=== PATIENT | female | born 1990 | race Hispanic/Latino ===

== ENCOUNTER 2019-12-10 15:12 | Observation (INO) ==
[2019-12-10] MEDS ORDERED: hydrALAZINE 20 MG/ML VIAL SLOW IVP PRN (15:40)
[2019-12-10] MEDS ORDERED: Lactated Ringer's 1,000 ML IV SCH ×2 (16:30)
[2019-12-10] MEDS ORDERED: Betamet Acet/Betamet Na Ph 30 MG/5 ML VIAL IM SCH (16:45)
[2019-12-10 17:01] LABS: Amnisure Internal Control QC ACCEPTABLE (ACCEPTABLE); Amnisure Test No Membranes Rupture (No Rupture)
--- NOTE | 2019-12-10 17:53 | ULT ---
BIOPHYSICAL PROFILE: 12/10/19 INDICATIONS: Oligohydramnios. There is a single viable intrauterine . tone: Score 2 breathing: Score 0 movement: Score 2 Amniotic fluid: Score 2 Total score: 6/8 DEMETRA is recorded at 5.8 which does indicate oligohydramnios. Position: Vertex. heart rate: 139 beats per minute. Placenta: Fundal to the right. POS: AGW
--- NOTE | 2019-12-10 18:53 | PDOC.FPROB ---
FMR OB H&P: HPI - History of Present Illness Chief Complaint: Oligohydraminos Indentification: 29 y/o at 35.0 wga by 14.0 wk sono. History of Present Illness: Pt presents to OB triage today after being seen in clinic today for mBPP and NST and DEMETRA was shown to be non reassuring in clinic and patient was sent to the hospital for further evaluation. Upon arrival, patient states that she is doing well at this time. No VB, VD, LOF. Endorses movement. Has not been feeling contractions. Pt also stated that she was not having [place]/vision changes, CP/SOB, N/V/D. 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 - Surgical History Sx History: -none - Social History Social History: -no tobacco, drug, etoh use - Family History Family History: Sister: PCOS Aunt: Leukemia Brother: open heart surgery at age 28 Grandmother: skin cancer FMR OB H&P: ROS - Review of Systems General: denies: fever/chills, fatigue Eyes: denies: vision changes, double vision ENT: denies: nasal congestion, rhinorrhea Cardiovascular: denies: chest pain, palpitation Respiratory: denies: cough, congestion, shortness of breath Gastrointestinal: denies: abdominal pain, indigestion, bloating, diarrhea, constipation Genitourinary (Female): denies: incontinence, dysuria, hematuria, polyuria, hesitancy, vaginal discharge, vaginal pain, vaginal bleeding, contractions, vaginal pressure Musculoskeletal: denies: pain, stiffness Neurologic: denies: numbness, syncope Integumentary: denies: rash Psychological: denies: depression, anxiety FMR OB H&P: Vital Signs - Maternal Vital signs: BP 120/67 HR 88 RR 18 - Heart Tones Baseline: 135 Variability: moderate Acceleration: present Deceleration: absent Category: category 1 [place] contractions every: no ctx seen FMR OB H&P: Physical Exam - Physical Exam General: NAD, awake, alert and oriented HEENT: normocephalic and atraumatic, PERRLA Neck: supple Chest: non-tender to palpation Breast: symmetric Heart: RRR, normal S1/S2, no murmurs/rubs/gallops, pulses present General: CTAB, no respiratory distress, good air movement, no rales/rhonchi, no wheezing, no retractions Abdomen: gravid Musculoskeletal: normal gait and station, FROM in all four extremities Neurological: no tremor, no focal deficit Skin: good tugor, capillary refill <2 seconds Psychiatric: intact recent and remote memory, good judgement and insight, normal mood and affect - Pelvic Exam Vulva: normal hair distribution Cervix: no masses, no lesions, no blood Deviation from normal: some white/green discharge noted. no pooling seen FMR OB H&P: Results - Labs Lab results: Laboratory Results - last 24 hr 12/10/19 16:20 Amnio Swab Test No Membranes Rupture FMR OB H&P: A/P Disposition: 29 y/o at 35.0 wga by 14.0 wk sono ##sIUP presenting with concerning sono findings of low DEMETRA -currently at 35.0 wga KOSTA 01/14/20 -today in clinic had mBPP and NST which showed DEMETRA of 1.5 -maternal labs neg so far -has been followed by MFM due to FGR, latest sono on 12/02 showed Hadlock of 1.7% -FHT: show FHR in 130s-140s, shows moderate variability with no decels -GBS unknown -genetic screening unable to be done d/t financial reasons ## will FGR -aware, see above -has been followed by MFM for this, however due to financial reasons has not been able to see them lately -has been having q4W growths due to this ## with false positive RPR -RPR has been positive titer 1:2 -treponemal abs have been tested for every trimester and these have been negative -pt in monogamous relationship ##A1GDM -aware -being managed and controlled with diet and exercise Plan: pt will be admitted for observation overnight. dose of steroids ordered. GBS obtained. Amnisure obtained. BPP ordered and results pending. H&P has been discussed with Dr. Doty who agrees with assessment and plan.
[2019-12-10] MEDS ORDERED: Promethazine HCl 25 MG/ML VIAL IM PRN (19:32)
[2019-12-10] MEDS ORDERED: Acetaminophen 500 MG TAB PO PRN (19:32)
[2019-12-10] MEDS ORDERED: Ondansetron PF 4 MG/2 ML Vial IVP PRN (19:32)
--- NOTE | 2019-12-10 21:04 | PDOC.LDPN ---
Labor & Delivery Progress Note - Subjective Subjective: comfortable - Objective Vital signs reviewed and normal: yes General: NAD Uterine fundus: non tender Plan: continue plan of care -: 29 y/o at 35.0 wga by 14.0 wk sono admitted obs due to concerning sono findings of low DEMETRA ##sIUP -currently at 35.0 wga KOSTA 01/14/20 -today in clinic had mBPP and NST which showed DEMETRA of 1.5 -maternal labs neg so far -has been followed by MFM due to FGR, latest sono on 12/02 showed Hadlock of 1.7% -Genetic screening unable to be done d/t financial reasons -Received #1 dose steroids at 2200 12/09 -FHT: 130 baseline, moderate variability, no decels -GBS pending -CMV, toxoplasma, HSV, HIV, CBC ordered -Growth US with umbilical artery dopplers pending ## will FGR -aware, see above -has been followed by M for this, however due to financial reasons has not been able to see them lately -has been having q4W growths due to this ## with false positive RPR -RPR has been positive titer 1:2 -treponemal abs have been tested for every trimester and these have been negative -pt in monogamous relationship ##A1GDM -aware -being managed and controlled with diet and exercise Plan: F/u growth US results, continue to monitor Addendum - Attending - Attending Attestation Date/Time: 12/11/19 0704 I personally evaluated the patient and discussed the management with Dr. Perez I agree with the History, Examination, Assessment and Plan documented above with any addition or exceptions noted below. Doing well. EFW improved from prior studies however FL remains restricted. DEMETRA WNLs. Placenta appeared grade 2. S/D ratio in free cord WNL based on GA. FHT cat 1 Reassuring findings. Ok to d/c today. Follow up with PCP. Tsering
[2019-12-10 21:10] LABS: #Eosinphils 0.1 thou/uL (0.0-0.7); #Lymphocytes 2.2 thou/uL (1.20-3.40); #Monocytes 0.5 thou/uL (0.11-0.59); #Neutrophils 6.3 thou/uL (1.40-6.50); %Basophils 0.3 % (0.0-1.0); %Eosinophils 1.4 % (0.0-10.0); %Lymphocytes 23.9 % (21.0-51.0); %Monocytes 5.8 % (0.0-10.0); %Neutrophils 68.7 % (42.0-75.0); Hemoglobin 12.1 g/dL (12.0-16.0); Mean Corpuscular HGB CONC 34.9 g/dL (32.0-36.0); Mean Corpuscular Hemoglobin 31.6 pg (27.0-31.0); Mean Corpuscular Volume 90.4 fL (78.0-98.0); Platelet Count 174 thou/uL (130-400); RBC Distribution Width 12.6 % (11.5-14.5); Red Blood Cell (RBC) Count 3.84 mill/uL (4.20-5.40); White Blood Cell (WBC) Count 9.1 thou/uL (4.8-10.8)
[2019-12-10 21:33] LABS: ALT (SGPT) 16 U/L (8-55); AST (SGOT) 15 U/L (5-34); Albumin 3.3 g/dL (3.5-5.0); Alkaline Phosphatase 176 U/L (40-110); Anion Gap 13 mmol/L (10-20); BUN (Urea Nitrogen) 11 mg/dL (7.0-18.7); Bilirubin, Total 0.2 mg/dL (0.2-1.2); Calc. Creatinine Clearance 138 mL/min (70-130); Calcium 9.2 mg/dL (7.8-10.44); Carbon Dioxide 23 mmol/L (22-29); Chloride 102 mmol/L (98-107); Estimated GFR-MDRD Greater than 90; Globulin 3.4 g/dL (2.4-3.5); Glucose 104 mg/dL (70-105); Potassium 3.5 mmol/L (3.5-5.1); Protein, Total 6.7 g/dL (6.0-8.3); Sodium 134 mmol/L (136-145)
[2019-12-10 21:49] LABS: Syphilis Antibody Nonreactive (Nonreactive); Syphilis Antibody Index 0.04 S/CO (<1.00 Non-Reactive)
--- NOTE | 2019-12-10 22:39 | PDOC.LDPN ---
Labor & Delivery Progress Note - Subjective Subjective: comfortable - Objective Vital signs reviewed and normal: yes General: NAD Uterine fundus: non tender Plan: continue plan of care -: 29 y/o at 35.0 wga by 14.0 wk sono admitted obs due to concerning sono findings of low DEMETRA ##sIUP -currently at 35.0 wga KOSTA 01/14/20 -today in clinic had mBPP and NST which showed DEMETRA of 1.5 -has been followed by MFM due to FGR, latest sono on 12/02 showed Hadlock of 1.7% -Genetic screening unable to be done d/t financial reasons -Received #1 dose steroids at 2200 12/09 -FHT: 130 baseline, moderate variability, no decels -GBS pending -HIV negative. CMV, toxoplasma, HSV pending -Growth US with umbilical artery dopplers pending ## will FGR -aware, see above -has been followed by MFM for this, however due to financial reasons has not been able to see them lately -has been having q4W growths due to this ## with false positive RPR -RPR has been positive titer 1:2 -treponemal abs have been tested for every trimester and these have been negative -pt in monogamous relationship ##A1GDM -aware -being managed and controlled with diet and exercise Plan: F/u growth US results, monitor overnight with likely dc in am Addendum - Attending - Attending Attestation Date/Time: 12/10/19 4732 I personally evaluated the patient and discussed the management with resident team I agree with the History, Examination, Assessment and Plan documented above with any addition or exceptions noted below. Reassuring status. Awaiting growth scan. Tsering
[2019-12-11 01:02] LABS: HIV (1/2) Antibody/Antigen Non-Reactive (NonReactive); HIV 1/2 INDEX 0.07 S/CO (<1.00); Hep B Surf Ag Non-Reactive S/CO (NonReactive)
[2019-12-11] MEDS ORDERED: diphenhydrAMINE 25 MG CAP PO SCH (02:00)
[2019-12-11 07:43] VITALS: TEMP 98.3
--- NOTE | 2019-12-11 08:09 | ULT ---
PRELIMINARY REPORT/[facility]/EMERGENCY AFTER HOURS PROCEDURE EXAM: US Obstetrical, Complete >14 weeks. CLINICAL HISTORY: Growth, and umbilical doppler TECHNIQUE: Transabdominal imaging of the maternal pelvis and a > 14 week gestation with image documentation. Do ppler images of the umbilical artery COMPARISON: None provided. FINDINGS: FETUS: Estimated gestational age by ultrasound: 34 weeks 2 days Clinical gestational age: 35 weeks 1 day Estimated weight: 2346 grams POSITION: position: Cephalic Placental location: Right uterine body without previa HEART RATE: heart rate: 137 bpm. BIOMETRICS: Biparietal diameter: 8.5 cm corresponding to 34 weeks 2 days Head circumference: 31.66 cm corresponding to 35 weeks 4 days Abdominal circumference: 30.96 cm corresponding to 34 weeks 6 days Femur length 6.3 cm corresponding to 32 weeks 4 days Estimated due date by ultrasound 01/20/2020 LMP: 04/09/2019 Clinical estimated due date: 01/14/2020 AMNIOTIC FLUID: DEMETRA: Qualitatively normal UMBILICAL ARTERIAL DOPPLER Peak systolic, diastolic, and systolic/diastolic values: At the placenta: 60.9, 32.6, 2. Free Loop: 83.3, 53.7, 1. insertion: 97.6, 19.7, 4. All resistive indices are less than 1 Normal umbilical arterial waveforms with preserved diastolic flow (without reversal). IMPRESSION: 1. Normal umbilical arterial waveforms with preserved diastolic flow (without reversal). 2. Concordant dating with the majority of the biometric measurements within normal limits. 3. The femur length below normal limits at the 2nd percentile. 4. Normal morphology of the umbilical arterial waveforms with normal Doppler values at the placental insertion and free Loop; however, there is elevated systolic to diastolic ratio at the insertion of 4.95 (50th percentile is 2.83 by the 30th week gestation). This could represent artifact versus sequela of growth restriction. Recommend close clinical follow-up with ECCLESIASTICAL WORKER and consideration for maternal medicine consultation. ELECTRONICALLY SIGNED BY: Rosales Weeks DO Dec 11, 2019 5:34:08 AM CDT This report is intended for review by the ordering physician only, in accordance of law. If you recei ve this report in error, please call [facility] at [phone]. FINAL REPORT Emergent after hours Limited OB ultrasound with umbilical artery Doppler evaluation HISTORY: Evaluate growth and umbilical Doppler. IMPRESSION: Findings are in agreement with preliminary report by [facility]. Code QA Transcribed Date/Time: 12/11/2019 8:29 AM
[2019-12-11] MEDS ORDERED: FLU VACC QS2020-21(6MOS UP)/PF 60 MCG/0.5 ML SYRINGE IM ONE (09:00)
--- NOTE | 2019-12-11 10:30 | PDOC.OBAPN ---
FMR OB AP PN: Sub - Interval History Hospital Day: 2 Chief Complaint: concern for oligo Indentification: 26 y/o at 35.1 wga by 14.0 wk sono Interval History: Pt doing well. No concerns at this time. No complaints or questions. FMR OB AP PN: Obj - Maternal Vital signs: BP: [123/65] HR: [75] RR: [18] Tmax: [98.3] - Heart Tones Baseline: 135 Variability: moderate Acceleration: present Deceleration: absent Category: category 1 [place] contractions every: none seen on toco FMR OB AP PN: Exam - Physical Exam General: NAD, awake, alert and oriented HEENT: normocephalic and atraumatic, PERRLA, MMM, conjunctiva clear, grossly normal hearing Neck: supple Chest: non-tender to palpation Heart: RRR, normal S1/S2, no murmurs/rubs/gallops, pulses present, no edema General: CTAB, no respiratory distress, good air movement, no rales/rhonchi, no wheezing, no retractions Abdomen: gravid Musculoskeletal: FROM in all four extremities Neurological: no tremor, no focal deficit Skin: no rash Psychiatric: intact recent and remote memory, good judgement and insight, normal mood and affect FMR OB AP PN: Data - Labs Lab results: Laboratory Results - last 24 hr 12/10/19 12/10/19 12/10/19 16:20 21:00 21:00 WBC RBC Hgb Hct MCV MCH MCHC RDW Plt Count MPV Neutrophils % Lymphocytes % Monocytes % Eosinophils % Basophils % Neutrophils # Lymphocytes # Monocytes # Eosinophils # Basophils # Sodium 134 L Potassium 3.5 Chloride 102 Carbon Dioxide 23 Anion Gap 13 BUN 11 Creatinine 0.71 Estimated GFR (MDRD) Greater than 90 Glucose 104 POC Glucose Calcium 9.2 Total Bilirubin 0.2 AST 15 ALT 16 Alkaline Phosphatase 176 H Serum Total Protein 6.7 Albumin 3.3 L Globulin 3.4 Albumin/Globulin Ratio 1.0 L Amnio Swab Test No Membranes Rupture Syphilis IgG/IgM Ab Hep Bs Antigen Non-Reactive HIV 1&2 Antigen & Ab Non-Reactive Blood Type Antibody Screen 12/10/19 12/10/19 12/10/19 21:00 21:00 21:01 WBC 9.1 RBC 3.84 L Hgb 12.1 Hct 34.7 L MCV 90.4 MCH 31.6 H MCHC 34.9 RDW 12.6 Plt Count 174 MPV 11.0 H Neutrophils % 68.7 Lymphocytes % 23.9 Monocytes % 5.8 Eosinophils % 1.4 Basophils % 0.3 Neutrophils # 6.3 Lymphocytes # 2.2 Monocytes # 0.5 Eosinophils # 0.1 Basophils # 0.0 Sodium Potassium Chloride Carbon Dioxide Anion Gap BUN Creatinine Estimated GFR (MDRD) Glucose POC Glucose Calcium Total Bilirubin AST ALT Alkaline Phosphatase Serum Total Protein Albumin Globulin Albumin/Globulin Ratio Amnio Swab Test Syphilis IgG/IgM Ab Nonreactive Hep Bs Antigen HIV 1&2 Antigen & Ab Blood Type O POSITIVE Antibody Screen NEGATIVE 12/10/19 12/10/19 12/11/19 22:00 22:01 07:36 WBC RBC Hgb Hct MCV MCH MCHC RDW Plt Count MPV Neutrophils % Lymphocytes % Monocytes % Eosinophils % Basophils % Neutrophils # Lymphocytes # Monocytes # Eosinophils # Basophils # Sodium Potassium Chloride Carbon Dioxide Anion Gap BUN Creatinine Estimated GFR (MDRD) Glucose POC Glucose 75 143 H Calcium Total Bilirubin AST ALT Alkaline Phosphatase Serum Total Protein Albumin Globulin Albumin/Globulin Ratio Amnio Swab Test Syphilis IgG/IgM Ab Hep Bs Antigen HIV 1&2 Antigen & Ab Blood Type O POSITIVE Antibody Screen FMR OB AP PN: A/P Disposition: 29 y/o at 35.1 wga by 14.0 wk sono who presented to OB triage for concerning findings of oligohydraminos. ##sIUP, high risk -currently at 35.1 wga KOSTA 01/14/20 -FHT: show FHR in 130s-140s, shows moderate variability with no decels and some accels, reassuring -BPP showed DEMETRA of 5.8 cm with score of 6/8, taken off for breathing -preliminary report done of growth and UA doppler study show normal UA waveforms with perserved diastolic flow (without reversal), femur length below normal limits within the second percentile. normal morphology of UA waveforms with elevated systolic to diastolic ratio at the insertion of 4.95 -s/p one dose of steroids @ 2200, will plan for another dose before d/c around noon today - complicated by FGR, is able to see MFM however was lost to follow up. discussed patients case with KAREN this AM and they will see her this afternoon in clinic to reassess with full BPP, growth, and UA doppler studies and we will follow along with them. ##A1GDM -aware -being managed and controlled with diet and exercise -in house glucose this AM was 143, however patient has received steroids ## with false positive RPR -RPR has been positive titer 1:2 -treponemal abs have been tested for every trimester and these have been negative -pt in monogamous relationship Plan: plan today to be discharged home after second dose of steroids. will f/u with M for appointment today at 2:30 PM, we will be following along with this. return precautions given. H&P has been discussed with Dr. Doty who agrees with assessment and plan.
[2019-12-11] MEDS ORDERED: Betamet Acet/Betamet Na Ph 30 MG/5 ML VIAL IM SCH (11:00)
[2019-12-13 07:14] LABS: CMV IgG AB Greater than 10.00 U/mL (0.00-0.59); Toxoplasma IgG AB Less than 3.0 IU/mL (0.0-7.1); Toxoplasma IgM AB Less than 3.0 AU/mL (0.0-7.9)
--- NOTE | 2019-12-13 15:36 | ULT ---
PRELIMINARY REPORT/[facility]/EMERGENCY AFTER HOURS PROCEDURE EXAM: US Obstetrical, Complete >14 weeks. CLINICAL HISTORY: Growth, and umbilical doppler TECHNIQUE: Transabdominal imaging of the maternal pelvis and a > 14 week gestation with image documentation. Do ppler images of the umbilical artery COMPARISON: None provided. FINDINGS: FETUS: Estimated gestational age by ultrasound: 34 weeks 2 days Clinical gestational age: 35 weeks 1 day Estimated weight: 2346 grams POSITION: position: Cephalic Placental location: Right uterine body without previa HEART RATE: heart rate: 137 bpm. BIOMETRICS: Biparietal diameter: 8.5 cm corresponding to 34 weeks 2 days Head circumference: 31.66 cm corresponding to 35 weeks 4 days Abdominal circumference: 30.96 cm corresponding to 34 weeks 6 days Femur length 6.3 cm corresponding to 32 weeks 4 days Estimated due date by ultrasound 01/20/2020 LMP: 04/09/2019 Clinical estimated due date: 01/14/2020 AMNIOTIC FLUID: DEMETRA: Qualitatively normal UMBILICAL ARTERIAL DOPPLER Peak systolic, diastolic, and systolic/diastolic values: At the placenta: 60.9, 32.6, 2. Free Loop: 83.3, 53.7, 1. insertion: 97.6, 19.7, 4. All resistive indices are less than 1 Normal umbilical arterial waveforms with preserved diastolic flow (without reversal). IMPRESSION: 1. Normal umbilical arterial waveforms with preserved diastolic flow (without reversal). 2. Concordant dating with the majority of the biometric measurements within normal limits. 3. The femur length below normal limits at the 2nd percentile. 4. Normal morphology of the umbilical arterial waveforms with normal Doppler values at the placental insertion and free Loop; however, there is elevated systolic to diastolic ratio at the insertion of 4.95 (50th percentile is 2.83 by the 30th week gestation). This could represent artifact versus sequela of growth restriction. Recommend close clinical follow-up with ASSOCIATE DEAN and consideration for maternal medicine consultation. ELECTRONICALLY SIGNED BY: Rosales Weeks DO Dec 11, 2019 5:34:08 AM CDT This report is intended for review by the ordering physician only, in accordance of law. If you recei ve this report in error, please call [facility] at [phone]. FINAL REPORT Emergent after hours Limited OB ultrasound with umbilical artery Doppler evaluation HISTORY: Evaluate growth and umbilical Doppler. IMPRESSION: Findings are in agreement with preliminary report by [facility]. Code QA Transcribed Date/Time: 12/13/2019 3:35 PM
== END 2019-12-11 11:20 | disposition home health service (06) ==
LOC: L&D/OP 15:12 → L&D 19:32
PROVIDERS: ADMIT Student in an Organized Health Care Education/Training Program; ATTEND Student in an Organized Health Care Education/Training Program
DX: O41.03X0 Oligohydramnios, third trimester, not applicable or unspecified (principal); O24.410 Gestational diabetes mellitus in pregnancy, diet controlled; Z3A.35 35 weeks gestation of pregnancy
CPT/HCPCS: 36415; 36416; 76815; 76819; 80053; 84112; 85025; 86644; 86645; 86777; 86778; 86780; 86850; 86900; 86901; 87081; 87340; 87389; 87480; 87510; 87529; 87660; 93975; 96372; 99285; G0378; J0702; Q0163

== ENCOUNTER 2019-12-20 08:48 | Outpatient (CLI) | payer OTHER ==
[2019-12-21 13:41] LABS: SARS-CoV-2 MS2 Positive; SARS-CoV-2 N Gene Negative; SARS-CoV-2 S Gene Negative; SARS-CoV-2 by NAA Not Detected (NotDetected); SARS-CoV-2 orf1ab Negative
== END 2019-12-20 08:49 | disposition home or self-care (01) ==
LOC: LABBT 08:48
PROVIDERS: ATTEND Family Medicine
DX: Z20.828 Contact with and (suspected) exposure to other viral communicable diseases (principal)
CPT/HCPCS: 87635; U0003

== ENCOUNTER 2019-12-24 18:00 | Inpatient (IN) | payer MEDICAID, OTHER, SELFPAY ==
[2019-12-24] MEDS: Lactated Ringer's 1,000 ML IV SCH (19:26)
[2019-12-24 19:51] VITALS: BMI 30.9
[2019-12-24] MEDS ORDERED: Lidocaine 1% (PF) 30 ML VIAL SC PRN (21:01)
[2019-12-24] MEDS ORDERED: Methylergonovine 0.2 MG/ML VIAL IM PRN (21:01)
[2019-12-24] MEDS ORDERED: Ibuprofen 800 MG TAB PO PRN (21:01)
[2019-12-24] MEDS ORDERED: NS / Oxytocin 40 units/1000ml 1,000 ML IV PRN (21:01)
[2019-12-24] MEDS ORDERED: hydrALAZINE 20 MG/ML VIAL SLOW IVP PRN (21:01)
[2019-12-24] MEDS ORDERED: Promethazine HCl 25 MG/ML VIAL IM PRN (21:01)
[2019-12-24] MEDS ORDERED: Misoprostol 200 MCG TAB PR PRN (21:01)
[2019-12-24] MEDS ORDERED: Carboprost 250 MCG/ML AMP IM PRN (21:01)
[2019-12-24] MEDS ORDERED: Ondansetron PF 4 MG/2 ML Vial IVP PRN (21:01)
--- NOTE | 2019-12-24 21:04 | PDOC.FPROB ---
FMR OB H&P: HPI - History of Present Illness Chief Complaint: mIOL History of Present Illness: 29 yo G1 @ 37.1 wks by 14.0wk soila here for mIOL due to hx of IUGR. Patient is being followed by MFM weekly and reports she had an appointment yesterday and they said everything looked good. She has been feeling baby move a lot, denies contractions, LOF, vaginal bleeding or vaginal discharge. FMR OB H&P: Current - Care : 1 Para: 0 Gestational age: 37.1 Due date: 01/14/2020 Dating Criteria: 14wk soila Course/Complications: IUGR - Hadlock 1.7% on December 02. Being followed by MFM weekly, no recent records but patient reports she had an appointment on 12/23/2019. 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 - Surgical History Sx History: None - Social History Social History: Denies tobacco, alcohol, or drug use - Family History Family History: None FMR OB H&P: Medications - Current Home Medications: Medication Instructions Recorded Confirmed Type Famotidine [Acid Controller] 20 mg PO BID PRN 12/24/19 12/24/19 History Ondansetron [Zofran ODT] 4 mg PO TID 12/24/19 12/24/19 History Docusate [Colace] 100 mg PO BID #30 cap 12/27/19 Rx HYDROcodone Bit/APAP 5/325 [[place]] 1 tab PO Q6H PRN tab 12/27/19 Rx Ibuprofen [Motrin] 800 mg PO Q8HR PRN #30 tab 12/27/19 Rx Simethicone [Mylicon Chewable] 80 mg PO PCHS PRN #30 tab 12/27/19 Rx Allergies/Adverse Reactions: Allergies Allergy/AdvReac Type Severity Reaction Status Date / Time No Known Allergies Allergy Verified 12/24/19 19:52 FMR OB H&P: ROS - Review of Systems General: denies: fever/chills Eyes: denies: double vision ENT: denies: nasal congestion Cardiovascular: denies: chest pain, edema Respiratory: denies: cough, shortness of breath Gastrointestinal: denies: abdominal pain Genitourinary (Female): denies: dysuria, vaginal discharge, vaginal bleeding, contractions Musculoskeletal: denies: swelling Neurologic: denies: headache Integumentary: denies: rash FMR OB H&P: Vital Signs - Maternal Vital signs: Vital Signs - First Documented Temp Pulse Resp BP 98.2 F 69 18 136/69 12/24/19 19:41 12/24/19 19:41 12/24/19 19:41 12/24/19 19:41 - Heart Tones Baseline: 130 Variability: moderate Acceleration: present Deceleration: absent Category: category 1 [place] contractions every: none FMR OB H&P: Physical Exam - Physical Exam General: NAD HEENT: normocephalic and atraumatic, EOMI, no scleral icterus, grossly normal vision, grossly normal hearing Neck: FROM Heart: RRR, no murmurs/rubs/gallops General: CTAB, no rales/rhonchi, no wheezing Abdomen: soft, gravid Musculoskeletal: FROM in all four extremities Neurological: sensation to pain,touch and proprioception grossly normal Skin: no rash Psychiatric: intact recent and remote memory, good judgement and insight, normal mood and affect - Pelvic Exam Vulva: normal hair distribution, appropriate reji stage SVE: 50/-2 Melton score: 4 Membranes: intact Presentation: vertex FMR OB H&P: A/P Discussion: Date/Time: 12/24/192103 29 yo G1 at 37.1 wks - mIOL for IUGR -1/50/-2 @ 2039 on 12/23, cat 1 tracing, no contractions - cytotec #1 placed Hx of IUGR Followed with MFM weekly, patient reports no problems at appointment on 12/22 - Hadlock 1.7% on December 02 A1GDM -90-120 fasting and postprandial checks past 3 days -q4hr checks This H&P was discussed with Dr. Holguin and Dr. Doty who agree with the above documentation and plan. I, Lj Holguin DO, have evaluated and agree with discussed plan as documented above. Addendum - Attending - Attending Attestation Date/Time: 01/20/20 1016 I personally evaluated the patient and discussed the management with Dr. Rome on 12/24/19. I agree with the History, Examination, Assessment and Plan documented above with any addition or exceptions noted below.
[2019-12-24] MEDS ORDERED: Misoprostol 100 MCG TAB VAG SCH (21:15)
[2019-12-24] MEDS: Misoprostol 100 MCG TAB VAG SCH (21:29)
[2019-12-24 21:35] LABS: Hemoglobin 11.9 g/dL (12.0-16.0); Mean Corpuscular HGB CONC 33.9 g/dL (32.0-36.0); Mean Corpuscular Hemoglobin 31.3 pg (27.0-31.0); Mean Corpuscular Volume 92.5 fL (78.0-98.0); Platelet Count 176 thou/uL (130-400); RBC Distribution Width 13.4 % (11.5-14.5); Red Blood Cell (RBC) Count 3.81 mill/uL (4.20-5.40); White Blood Cell (WBC) Count 9.3 thou/uL (4.8-10.8)
[2019-12-24 22:11] LABS: Syphilis Antibody Nonreactive (Nonreactive); Syphilis Antibody Index 0.02 S/CO (<1.00 Non-Reactive)
[2019-12-24 22:39] LABS: HBSAg Index 0.15 S/CO (0-0.99); Hep B Surf Ag Non-Reactive S/CO (NonReactive)
--- NOTE | 2019-12-24 23:42 | PDOC.LDPN ---
Labor & Delivery Progress Note - Subjective Subjective: comfortable - Objective Vital signs reviewed and normal: yes General: NAD, resting SVE: /-2 Dilation: 1 Effacement: 50% Station: -2 FHT: category 1, variability present [place] contractions every: none Plan: continue plan of care -: 29 yo G1 at 37.1 wks - mIOL for IUGR -50/-2 @ 0 on 12/23, cat 1 tracing, no contractions - cytotec #1 placed -/-2 @ 0030, cat 1 tracing, no contractions, - cytotec #2 placed -Reevaluate in 3 hours Hx of IUGR Followed with MFM weekly, patient reports no problems at appointment on 12/22 - Hadlock 1.7% on December 02 A1GDM -90-120 fasting and postprandial checks past 3 days -q4hr checks
[2019-12-25] MEDS: Misoprostol 100 MCG TAB VAG SCH ×2 (00:33→10:04)
[2019-12-25] MEDS: Lactated Ringer's 1,000 ML IV SCH ×3 (01:20→15:20)
[2019-12-25] MEDS ORDERED: Terbutaline Sulfate 1 MG/ML VIAL ONE (02:09)
[2019-12-25] MEDS ORDERED: Terbutaline Sulfate 1 MG/ML VIAL SC SCH (02:15)
[2019-12-25] MEDS ORDERED: Azithromycin 500 MG in Sodium Chloride 0.9% 250 ML 250 ML IVPB SCH (02:15)
[2019-12-25] MEDS ORDERED: Bicitra 30 ML UDCUP PO SCH (02:15)
[2019-12-25] MEDS ORDERED: CEFAZOLIN 2 GM in Premix Bag 1 BAG IVPB SCH (02:15)
--- NOTE | 2019-12-25 02:35 | PDOC.LDPN ---
Labor & Delivery Progress Note - Subjective Subjective: painful contractions - Objective Abnormal vital signs: BP 151/96 General: resting FHT: category 2, late decelerations, absent or minimal variables Plan: other -: 29 yo G1 at 37.2 wks - mIOL for IUGR -1/50/-2 @ 2040 on 12/23, cat 1 tracing, no contractions - cytotec #1 placed -1/50/-2 @ 0030, cat 1 tracing, no contractions, - cytotec #2 placed -Shortly after 2nd cytotec was placed, patient began experiencing late decelerations. At 0100 cytotec was swept out, position change, fluid bolus. Decels continued, including a prolonged deceleration of ~4 minutes. After recovery of that decel FHTs were ~160. Decision was made to proceed with C- section. Andres PARKER, and Jd muhammad and Idalia called. Hx of IUGR Followed with MFM weekly, patient reports no problems at appointment on 12/22 - [place] 1.7% on December 02 A1GDM -90-120 fasting and postprandial checks past 3 days -q4hr checks Addendum - Attending - Attending Attestation Date/Time: 01/20/20 1019 I personally evaluated the patient and discussed the management with Dr. Rome on 12/25/19. I agree with the History, Examination, Assessment and Plan documented above with any addition or exceptions noted below. Urgent for nonreassuring FHT's remote from opportunity for vaginal delivery in pt. with IUGR and GDM
[2019-12-25] MEDS ORDERED: Morphine PF 10 MG/10 ML VIAL ONE (03:00)
[2019-12-25] MEDS ORDERED: Dexamethasone 4 mg/ml Vial ONE (03:00)
[2019-12-25] MEDS ORDERED: ePHEDrine 50 MG/ML VIAL ONE (03:00)
[2019-12-25] MEDS ORDERED: PHENYLEPHRINE-NS 100 MCG/ML 10 ML SYRINGE ONE (03:00)
[2019-12-25] MEDS ORDERED: Ketorolac Tromethamine 30 MG/ML VIAL ONE (03:00)
[2019-12-25] MEDS ORDERED: Ondansetron PF 4 MG/2 ML Vial ONE (03:00)
[2019-12-25] MEDS ORDERED: Oxytocin 10 UNITS/ML VIAL ONE (03:00)
[2019-12-25] MEDS ORDERED: Fentanyl 100 MCG/2 ML VIAL ONE (03:00)
[2019-12-25 04:06] LABS: Actual Bicarbonate (HCO3a) 23.2 mEq/L (22-28); Base Excess (BEa) -7.1 mEq/L (-2.0 to +3.0)
[2019-12-25 04:09] LABS: Actual Bicarbonate (HCO3v) 24 mEq/L (22-28); Base Excess -4.3 mEq/L (-2.0 to +3.0)
[2019-12-25] MEDS ORDERED: diphenhydrAMINE 50 MG/ML VIAL IVP PRN ×2 (04:09→05:07)
[2019-12-25] MEDS ORDERED: Naloxone HCl 0.4 mg/ml Vial IV PRN (04:09)
[2019-12-25] MEDS ORDERED: HYDROmorphone 2 MG/ML VIAL SLOW IVP PRN (04:09)
[2019-12-25] MEDS ORDERED: Naloxone HCl 0.4 mg/ml Vial IVP PRN ×4 (04:09→05:07)
[2019-12-25] MEDS ORDERED: L&D-Morphine 4 MG/ML VIAL SLOW IVP PRN (04:09)
[2019-12-25] MEDS ORDERED: Ondansetron HCl/PF 4 MG/2 ML Vial IVP PRN (04:09)
[2019-12-25] MEDS ORDERED: Promethazine HCl 25 MG SUPP PR PRN (04:09)
[2019-12-25] MEDS ORDERED: Ondansetron PF 4 MG/2 ML Vial IVP PRN ×3 (04:09→05:07)
[2019-12-25] MEDS ORDERED: Meperidine HCl/PF 25 MG/ML VIAL SLOW IVP PRN (04:09)
[2019-12-25] MEDS ORDERED: Promethazine HCl 25 MG/ML VIAL IM PRN ×2 (04:09→05:07)
[2019-12-25 04:10] LABS: pH (Cord, venous) 7.24 (7.32-7.43)
[2019-12-25] MEDS ORDERED: Communication Order-Pharmacy FS SCH ×2 (04:15→05:15)
[2019-12-25] MEDS ORDERED: HYDROcodone/Acetaminophen 5/325 mg Tablet PO PRN ×2 (04:49)
[2019-12-25] MEDS ORDERED: Acetaminophen 325 MG TAB PO PRN ×2 (04:49→05:07)
[2019-12-25] MEDS ORDERED: hydrALAZINE 20 MG/ML VIAL SLOW IVP PRN (04:49)
[2019-12-25] MEDS ORDERED: Lanolin Ointment 7 GM TUBE TOP PRN (04:49)
[2019-12-25] MEDS ORDERED: Adacel (T-DAP) 0.5 ML SYRINGE IM ONE (04:49)
[2019-12-25] MEDS ORDERED: diphenhydrAMINE 25 MG CAP PO PRN (04:49)
--- NOTE | 2019-12-25 04:59 | PDOC.OPDEL ---
OB Operative/Delivery Note Delivery Dr/Surgeon: Danny/ Pre-Delivery Diagnosis: medically indicated induction, non-reassuring tracing, other (IUGR, A1GDM) Procedure/Post Delivery Dx: primary low transverse CS Weeks gestation: 37 (37.2) Anesthesia: spinal - Findings A Sex: female - Additional Findings/Plan Placenta delivered: manual removal findings: low transverse hysterotomy without extension, other (single, 1cm, anterior uterine fibroid) Estimated blood loss: 310 Compilations/Other Findings: Date of Procedure: 12/25/19 Resident Surgeon: Danny Attending Surgeon: Procedure: Primary low transverse caesarean section Preoperative Diagnosis: 1)Term intrauterine @ 37.2wk 2)Non-reassuring heart tones 3)IUGR 4)A1GDM Postoperative Diagnosis: 1)Term , delivered 2)Same as above Anesthesia: spinal Indications: The patient is a 29 year old female at 37.2 weeks gestation who presented for medically-indicated IOL for IUGR. After placement of 2nd cytotec baby experience recurrent, prolonged late decels and associated tachycardia. Tocolytics were given and baby recovered. After discussion with patient, decision was then made to proceed with pLTCS for non-reassuring heart tones and failed induction of labor. Procedure in Detail: After risks, benefits, and alternatives were explained to the patient, she gave informed consent. Pre-operative antibiotics included Cefazolin 2 gram IV and Azithromycin 500mg. The patient was taken to the operating room and spinal anesthesia was initiated. She was placed in the supine position with a left tilt and prepped and draped in usual sterile fashion. A Pfannenstiel incision was made with a scalpel and carried down to the level of the fascia which was sharply nicked. The fascial cut was extended bilaterally with Tatum scissors. The inferior and superior edges of the cut fascial edges were elevated with Eric clamps and the underlying rectus muscles were sharply and bluntly dissected free. The recti were divided digitally and retracted manu ally. The peritoneum was entered bluntly and retracted manually. Bladder blade was placed. A low transverse score was made with a new, clean scalpel and the uterus was entered in the midline bluntly. Clear fluid was seen. The hysterotomy was extended manually. The was noted to be vertex initial with arm as presenting part. Baby then rotated breech and thus a breech extraction was easily performed. Mouth and nares were bulb suctioned. Cord clamped and cut and grossly normal female infant was handed to waiting nurse. Cord blood and cord gas were obtained. Placenta was manually extracted, found to be intact with 3 vessel cord and sent for pathology. The uterus was externalized and the endometrium was curetted with a dry lap. The bladder blade was replaced and the uterus was closed with a running locking #1 Monocryl. A small area of bleeding was noted at the midline hysterotomy edge and thus a single figure of eight suture was placed using #1 Monocryl achieving hemostasis. Following this hemostasis was noted. The uterus was internalized and the hysterotomy was again noted to be hemostatic. The peritoneum was reapproximated using a running, non- locking 3-0 Vicryl. The fascia was closed with a running non-locking 0-PDS suture. The subcutaneous tissue was irrigated and there were no bleeders. The subcutaneous tissue was reapproximated with 3 simple interrupted sutures using 2-0 plain. The skin was approximated with dash and a pressure dressing was placed. All counts were correct. The patient tolerated the procedure well and was taken to the recovery room in stable condition. Estimated Blood Loss: 310cc Complications: None Specimens: Cord blood sent to lab for blood type. Cord gas sent to lab. Findings: Grossly normal female infant with Apgars of 4 and 8. Grossly normal placenta with 3 vessel cord sent for pathology. Drains: [place] to gravity draining clear urine Post delivery plan: routine recovery Addendum - Attending - Attending Attestation Date/Time: 01/20/20 1023 I, Judson Doty MD, personally evaluated the patient and discussed indications for the procedure described by Dr. Mann on 12/25/19. I directly supervised and participated in the Section and I agree with the description of procedure as documented above without any addition or exceptions.
[2019-12-25] MEDS ORDERED: ePHEDrine 50 MG/ML VIAL SLOW IVP PRN (05:07)
[2019-12-25] MEDS ORDERED: Lactated Ringer's 500 ML IV PRN (05:07)
[2019-12-25] MEDS ORDERED: Fentanyl 4 mcg/Bupivacaine 0.1% Cassette 100 ML EPIDURAL SCH (05:15)
[2019-12-25] MEDS: Ibuprofen 800 MG TAB PO SCH ×2 (08:51→13:22)
[2019-12-25] MEDS: Prenatal Vitamin 1 TAB PO SCH (08:51)
[2019-12-25] MEDS: Ketorolac Tromethamine 30 MG/ML VIAL IVP PRN ×2 (08:54→21:06)
--- NOTE | 2019-12-25 08:56 | PDOC.BPN ---
- Brief Progress Note Encounter Date: 12/25/19 Encounter Time: 08:30 4 Hour Post-Operative Note S: Reports she is feeling hot. Also c/o pain around surgical site. Feeling hungry. O: Resting comfortably, easily awakened, lungs CTAB, RRR/no tachycardia, afebrile and VSS, moderate tenderness over surgical site with c/d/i dressing, uterine fundus firm on palpation, minimal amount of bleeding on mickey pad A: Appropriate exam. 200 cc urine output over past 1 hr since arrival to , adequate; reported minimal bleeding since arrival c/w appearance on my exam, not yet quantified. QBL reported from L&D 405. P: Continue routine post- care and pain control. May advance diet as tolerated. Continue to monitor VS, UOP, bleeding. B. Rehg, DO, PGY-1
--- NOTE | 2019-12-25 15:55 | PDOC.BPN ---
<Viviana Bronson - Last Filed: 12/25/19 15:56> - Brief Progress Note Encounter Date: 12/25/19 Encounter Time: 16:00 Nursing reports patient ate then vomited 3 times today. She has been given zofran IV and phenergan and IV fluids were restarted, LR @ 125 ml/hr. S: Pt reports she no longer is nauseated. She reports she has vomited every morning for the past week. She denies abdominal pain, except for a small amount of pain during fundal massage/nursing checks. She has not ambulated yet. Alcal[place] is in place. She has been passing gas. O: VSS. T 98, P 72, R 20, 96% on RA. BP 121/69 Cardiac: RRR Lungs: BCTA Abd: distended, NTTP, fundus below umbilicus A/P: Checking Hemagram. Give PRN simethicone. <Gloria Rae - Last Filed: 12/26/19 15:21> - Brief Progress Note Attending note: Concern for illeus. Add AXR and BMP to check electrolytes. Decrease advancement of diet. Follow up exam later this afternoon. Tsering
[2019-12-25] MEDS: Simethicone Chewable 80 MG TAB PO PRN (16:15)
[2019-12-25 16:18] LABS: Hemoglobin 10.7 g/dL (12.0-16.0); Mean Corpuscular HGB CONC 33.4 g/dL (32.0-36.0); Mean Corpuscular Hemoglobin 31.2 pg (27.0-31.0); Mean Corpuscular Volume 93.5 fL (78.0-98.0); Mean Platelet Volume 10.4 fL (7.4-10.4); Platelet Count 147 thou/uL (130-400); RBC Distribution Width 13.1 % (11.5-14.5); Red Blood Cell (RBC) Count 3.43 mill/uL (4.20-5.40); White Blood Cell (WBC) Count 11.5 thou/uL (4.8-10.8)
[2019-12-25 17:45] LABS: Anion Gap 12 mmol/L (10-20); BUN (Urea Nitrogen) 10 mg/dL (7.0-18.7); Calc. Creatinine Clearance 173 mL/min (70-130); Calcium 8.5 mg/dL (7.8-10.44); Carbon Dioxide 23 mmol/L (22-29); Chloride 104 mmol/L (98-107); Glucose 91 mg/dL (70-105); Sodium 135 mmol/L (136-145)
--- NOTE | 2019-12-25 19:14 | RAD ---
Abdomen one view HISTORY: Abdominal pain. Evaluate for obstruction. FINDINGS: Nondilated but gaseous distended loops of small bowel and colon are present. Gas evident wi thin the stomach. Horizontal skin staple row overlies the pelvis. Paucity of bowel gas at the pelvis likely related to uterine enlargement. IMPRESSION : Nonspecific bowel gas pattern. Recent postoperative changes of the pelvis.
[2019-12-25] MEDS ORDERED: Sodium Chloride 0.9% 10 ML ONE (21:01)
[2019-12-26] MEDS: Ibuprofen 800 MG TAB PO SCH ×6 (03:23→21:42)
--- NOTE | 2019-12-26 08:55 | PDOC.PP ---
Post Progress Note Post Day #: 1 Subjective: 29 y/o F s/p pLTCS, now . Significant nausea yesterday with some vomiting. Has not had further vomiting. Nausea is improved although she has not really tried eating yet. States she is feeling hungry and would like to try eating. She has been able to tolerate small sips of liquids. Endorses significant abdominal pain and distention. Has not had BM since procedure. States it feels like cramping and gas pain. She additionally has pain over her incision. PO intake tolerated: yes Ambulation: no Vital Signs (12 hours) Temp Pulse Resp BP Pulse Ox 12/26/19 08:01 98.4 F 84 20 109/57 L 96 12/26/19 06:30 98.6 F 82 14 110/63 12/26/19 00:50 98.5 F 83 14 106/53 L Weight Weight 74.389 kg - Physical Examination General: NAD Cardiovascular: no m/r/g, RRR Respiratory: clear to auscultation bilaterally, non-labored breathing Deviation from normal: distended abdomen, diffusely TTP Skin: no rash Deviation from normal: CS incision covered with c/d/i pressure dressing Neurological: no gross focal deficits Psychiatric: A&Ox3, normal affect Result Diagrams: 12/25/19 16:02 12/25/19 17:18 Additional Labs: Post Labs Hep Bs Antigen Non-Reactive S/CO (NonReactive) 12/24/19 21:18 Blood Type O POSITIVE 12/24/19 21:18 - Assessment/Plan s/p pLTCS pLTCS on 12/24 for NRFHT. Adequate UOP post-op. - continue current anti-emetics PRN for nausea, adv diet as tolerated - norco and ibuprofen for pain control; discontinued toradol as patient is attempting to breast feed - ambulate when tolerated Abdominal distention KUB yesterday remarkable for diffuse bowel gas/post-op changes, no acute findings suggestive of obstruction. - continue simethicone PRN for abd cramping/gas related pain - colace scheduled BID - consider adding miralax to bowel regimen if symptoms not improving A1GDM Glucose has been wnl. Does not need further therapy or continued accuchecks. - Increased risk of developing T2DM in future, should f/u with PCP Addendum - Attending - Attending Attestation Date/Time: 12/26/19 1027 I personally evaluated the patient and discussed the management with resident team I agree with the History, Examination, Assessment and Plan documented above with any addition or exceptions noted below. Pt doing well this morning. Noted to still have abdominal tenderness. Concern yesterday for illeus. XR negative. Passing flatus. No BM. Distension improved from yesterday. Will slow advancement of diet. Follow up exam at 1400. Labs WNL. Continue to monitor overnight. Incision healing well. ABrayMD
[2019-12-26] MEDS ORDERED: HYDROcodone/Acetaminophen 5/325 mg Tablet PO PRN (09:14)
[2019-12-26] MEDS: Simethicone Chewable 80 MG TAB PO PRN ×2 (09:51→16:59)
[2019-12-26] MEDS: HYDROcodone/Acetaminophen 10/325 mg Tablet PO PRN ×2 (09:51→16:59)
[2019-12-26] MEDS: Docusate 100 MG CAP PO SCH ×2 (09:51→21:43)
[2019-12-26] MEDS: Prenatal Vitamin 1 TAB PO SCH (09:51)
[2019-12-26] MEDS ORDERED: FLU VACC QS2020-21(6MOS UP)/PF 60 MCG/0.5 ML SYRINGE IM ONE (16:15)
[2019-12-27] MEDS: HYDROcodone/Acetaminophen 10/325 mg Tablet PO PRN (00:08)
[2019-12-27] MEDS: Simethicone Chewable 80 MG TAB PO PRN (00:20)
[2019-12-27] MEDS: Ibuprofen 800 MG TAB PO SCH (05:27)
--- NOTE | 2019-12-27 06:39 | PDOC.PP ---
Post Progress Note Post Day #: 2 Subjective: No acute overnight events. Reports she still has not had a bowel movement. Has some gas pain, but is much better than yesterday. Some incisional pain that is well controlled by medication, norco and ibuprofen. Otherwise feeling well. Ambulating in room. She expresses some concern about , producing colostrum but not producing much milk yet. She is trying to pump as well. No other concerns this morning. PO intake tolerated: yes Flatus: yes Ambulation: yes Vital Signs (12 hours) Temp Pulse Resp BP BP Pulse Ox 12/27/19 00:00 98.2 F 77 20 110/59 L 97 12/26/19 20:49 98.7 F 79 16 121/61 99 Weight Weight 74.389 kg - Physical Examination General: NAD Cardiovascular: no m/r/g, RRR Respiratory: clear to auscultation bilaterally, non-labored breathing Abdominal: appropriately TTP Deviation from normal: mild distention, improving Skin: CS incision dry & intact, no rash Neurological: no gross focal deficits Psychiatric: A&Ox3, normal affect Result Diagrams: 12/25/19 16:02 12/25/19 17:18 Additional Labs: Post Labs Hep Bs Antigen Non-Reactive S/CO (NonReactive) 12/24/19 21:18 Blood Type O POSITIVE 12/24/19 21:18 - Assessment/Plan s/p pLTCS pLTCS on 12/24 for NRFHT. Adequate UOP post-op. - continue current anti-emetics PRN for nausea, adv diet as tolerated - norco and ibuprofen for pain control - ambulate TID Abdominal distention KUB 12/24 remarkable for diffuse bowel gas/post-op changes, no acute findings suggestive of obstruction. - change simethicone to scheduled - colace scheduled BID - consider adding miralax to bowel regimen if symptoms not improving - no BM since procedure, +flatus A1GDM Glucose has been wnl. Does not need further therapy or continued accuchecks. - Increased risk of developing T2DM in future, should f/u with PCP Breast feeding Some difficulty with production - continue trying to feed and pumping after - consulted Drew Castaneda DO, PGY-1 Addendum - Attending - Attending Attestation Date/Time: 12/27/19 1044 I personally evaluated the patient and discussed the management with Dr. Castaneda. I agree with the History, Examination, Assessment and Plan documented above with any addition or exceptions noted below. desires d/c today and has progressed as expected. f/u monday for staple removal and to establish care for baby. Chana Rx sent through [facility] EMR.
[2019-12-27 08:31] VITALS: BP 113/64; TEMP 97.9
[2019-12-27] MEDS: Docusate 100 MG CAP PO SCH (08:33)
[2019-12-27] MEDS: Prenatal Vitamin 1 TAB PO SCH (08:33)
[2019-12-27] MEDS: Simethicone Chewable 80 MG TAB PO SCH ×2 (08:33→11:43)
== END 2019-12-27 13:10 | disposition home or self-care (01) | DRG 788 ==
LOC: L&D 18:37 → 3SW 12-25 07:33
PROVIDERS: ADMIT Family Medicine; ATTEND Family Medicine
PROC: 10D00Z1 Extraction of Products of Conception, Low, Open Approach (ICD-10-PCS; principal; 2019-12-25)
DX: O76 Abnormality in fetal heart rate and rhythm complicating labor and delivery (principal); O24.420 Gestational diabetes mellitus in childbirth, diet controlled; O36.5930 Maternal care for other known or suspected poor fetal growth, third trimester, not applicable or unspecified; Z37.0 Single live birth; Z3A.37 37 weeks gestation of pregnancy; R14.0 Abdominal distension (gaseous)
CPT/HCPCS: 36415; 36416; 51702; 74018; 80048; 82805; 85027; 86780; 86850; 86900; 86901; 87340; 88307; J0690; J1100; J1885; J2270; J2405; J2550; J3010; J3105; J3490